=== PATIENT | female | born 1975 | race Caucasian/White ===

== ENCOUNTER 2023-05-01 14:25 | Emergency (ER) | payer OTHER ==
[~2023-05-01] VITALS: Ht 160 cm; Wt 94.5 kg
[~2023-05-01 14:25] MED LIST: ATENOLOL50 MG PO; ATORVASTATIN CA40 MG PO; CLOZAPINE100 MG PO; LATUDA40 MG PO; LORAZEPAM1 MG PO; METFORMIN HCL500 MG PO; OMEPRAZOLE40 MG PO; PROZAC40 MG PO; TOPIRAMATE50 MG PO; XULANE PATCH1 EACH TD
[2023-05-01 15:07] LABS: AMPHETAMINES, UR NEGATIVE (NEGATIVE); BARBITURATES, UR NEGATIVE (NEGATIVE); BENZODIAZEPINES, UR NEGATIVE (NEGATIVE); BILIRUBIN, URINE NEGATIVE (negative); BLOOD/HGB, URINE SMALL (Negative); BUPRENORPHINE,UR NEGATIVE (NEGATIVE); COCAINE, UR NEGATIVE (NEGATIVE); KETONE, URINE NEGATIVE (Negative); LEUK ESTERASE, URINE SMALL (negative); MARIJUANA (THC), UR NEGATIVE (NEGATIVE); MDMA, UR NEGATIVE (NEGATIVE); METHADONE, UR NEGATIVE (NEGATIVE); METHAMPHETAMINE, UR NEGATIVE (NEGATIVE); NITRITE, URINE NEGATIVE (negative); OPIATES, UR NEGATIVE (NEGATIVE); OXYCODONE, UR NEGATIVE (NEGATIVE); PHENCYCLIDINE, UR NEGATIVE (NEGATIVE); TRICYCLIC ANTIDEPRESSANT, UR NEGATIVE (NEGATIVE)
[2023-05-01 15:14] LABS: BACTERIA, URINE 1+ /hpf (negative); CASTS, URINE NONE SEEN \\lpf; COLLECTION TYPE, URINE CLEAN CATCH; CRYSTALS, URINE NONE SEEN (0-1+); EPITHELIAL CELLS, URINE SQUAMOUS 3+ /lpf (0-1+); REFLEX CULTURE, URINE No (No)
[2023-05-01 15:42] LABS: BASOPHILS 0.2 % (0-2); EOSINOPHILS 2.6 % (0-6); HEMATOCRIT 35.3 % (35.0-50.0); LYMPHOCYTES 33.1 % (24-44); MCH 29.9 (27-36); MCHC 33.9 g/dl (30-36); MCV 88.4 fl (81-99); MONOCYTES 7.6 % (0-12); NEUTROPHILS 56.5 % (39-80); PLATELET COUNT 299 K/uL (140-440); RDW 12.7 (10.5-15.0)
[2023-05-01] MEDS ORDERED: CLONAZEPAM1 MG PO (15:48)
[2023-05-01] MEDS ORDERED: BUSPIRONE HCL30 MG PO (15:49)
[2023-05-01] MEDS ORDERED: FEROSUL325 MG PO (15:49)
[2023-05-01] MEDS ORDERED: LORATADINE10 MG PO (15:49)
[2023-05-01] MEDS ORDERED: VITAMIN D325 MC2 PO (15:52)
[2023-05-01] MEDS ORDERED: CENTRUM WOMEN1 EACH PO (15:52)
[2023-05-01] MEDS ORDERED: DOCUSATE SODIU100 MG PO (15:53)
[2023-05-01 16:06] LABS: ACETAMINOPHEN 0 ug/mL (10-30); ALBUMIN 3.5 g/dL (3.4-5.0); ALCOHOL, MEDICAL <3 ng/dL (<3); ALKALINE PHOSPHATASE 109 U/L (46-116); ALT (SGPT) 27 U/L (14-59); ANION GAP 12.8 (7-21); AST (SGOT) 14 U/L (15-37); BILIRUBIN, TOTAL 0.3 ng/dL (0.2-1.0); BUN/CREATININE RATIO 16.88 (6.0-28.6); CALCIUM 9.4 mg/dL (8.5-10.1); CARBON DIOXIDE 28 mmol/L (21-32); CHLORIDE 104 mmol/L (98-107); CREATININE, SERUM 0.77 mg/dL (0.55-1.02); GLOMERULAR FILTRATION RATE,EST 97 mL/min (>60); POTASSIUM 3.8 mmol/L (3.5-5.1); SALICYLATE 0.7 mg/dL (2.8-20.0); TSH, 3RD GENERATION 1.319 uIU/mL (0.358-3.740); UREA NITROGEN 13 mg/dL (7-18)
[2023-05-01 17:41] VITALS: BP 113/61
== END 2023-05-01 17:41 | disposition home or self-care (01) ==
LOC: ED 14:25
PROVIDERS: Internal Medicine
DX: R44.0 Auditory hallucinations (principal); Z79.899 Other long term (current) drug therapy
CPT/HCPCS: 36415; 80053; 81001; 84443; 84703; 85025; 99284; G0480